=== PATIENT | female | born 1980 | race Caucasian/White ===

== ENCOUNTER 2018-02-14 14:34 | Emergency (ER) | payer MEDICAID ==
[~2018-02-14] VITALS: Ht 162.6 cm; Wt 85.0 kg
[~2018-02-14 14:34] MED LIST: CLOZ200T PO; DIVA-81 PO; DOCU250C4 PO; LEVO25TA2 PO; OMEP20TA23 PO; PERP8TAB6 PO; TOPI50TA24 PO
[2018-02-14 15:32] LABS: BASOPHILS % (AUTO) 0.2 % (0-1); EOSINOPHILS % (AUTO) 0.2 % (0-6); HEMATOCRIT 38.3 % (35.0-45.0); HEMOGLOBIN 13.4 g/dl (12.0-16.0); LYMPHOCYTES # (AUTO) 1.7 X10'3 (1.1-4.8); LYMPHOCYTES % (AUTO) 20.6 % (21-51); MEAN CORPUSCULAR HEMOGLOBIN 33.6 PG (27.0-31.0); MEAN CORPUSCULAR HGB CONC 35.1 % (33.0-36.5); MEAN CORPUSCULAR VOLUME 95.6 FL (78-98); MEAN PLATELET VOLUME 8.6 FL (7.4-10.4); MONOCYTES # (AUTO) 0.6 X10'3 (0-0.9); MONOCYTES % (AUTO) 7.8 % (2-12); NEUTROPHILS # (AUTO) 5.7 X10'3 (1.8-7.7); NEUTROPHILS % (AUTO) 71.2 % (42-75); PLATELET COUNT 208 X10'3 (140-440); RED BLOOD COUNT 4.01 X10'6 (4.20-5.60); RED CELL DISTRIBUTION WIDTH 12.7 % (11.5-14.5); WHITE BLOOD COUNT 8.1 X10'3 (4.5-11.0)
[2018-02-14 15:56] LABS: ACETAMINOPHEN < 2.0 UG/ML (10-30); ALANINE AMINOTRANSFERASE 18 U/L (12-78); ALBUMIN 3.9 G/DL (3.4-5.0); ALKALINE PHOSPHATASE 98 IU/L (46-116); ANION GAP 14 (8-16); ASPARTATE AMINO TRANSFERASE 14 U/L (10-37); BILIRUBIN,TOTAL 0.5 MG/DL (0.1-1.0); BLOOD UREA NITROGEN 14 MG/DL (7-18); BUN/CREATININE RATIO 21.5 (6.6-38.0); CALCIUM 9.1 MG/DL (8.5-10.1); CHLORIDE 102 MMOL/L (99-107); CREATININE 0.65 MG/DL (0.40-0.90); ETHANOL < 0.010 GM/DL (0.0-0.010); GLUCOSE 78 MG/DL (70-104); POTASSIUM 3.7 MMOL/L (3.5-5.1); SODIUM 140 MMOL/L (135-145); TOTAL CARBON DIOXIDE 23.7 MMOL/L (24-32); TOTAL PROTEIN 7.7 G/DL (6.4-8.2); eGFR > 90 ML/MIN
[2018-02-14 16:05] LABS: URINE AMPHETAMINE SCREEN NEGATIVE (Neg); URINE BARBITUATE SCREEN NEGATIVE (Neg); URINE BENZODIAZEPINES SCREEN NEGATIVE (Neg); URINE CANNABINOID SCREEN NEGATIVE (Neg); URINE COCAINE SCREEN NEGATIVE (Neg); URINE METHADONE SCREEN NEGATIVE (Neg); URINE OPIATE SCREEN NEGATIVE (Neg); URINE PHENCYCLIDINE SCREEN NEGATIVE (Neg)
[2018-02-14 17:50] LABS: CLARITY,URINE SLIGHTLY CLOUDY (Clear); COLOR,URINE STRAW (Yellow); GLUCOSE, URINE NEGATIVE (Neg); KETONES,URINE 15 mg/dl (Neg); LEUKOCYTE ESTERASE ,URINE NEGATIVE (Neg); NITRITES, URINE NEGATIVE (Neg); OCCULT BLOOD,URINE NEGATIVE (Neg); PH,URINE 5.5 (4.8-8.0); PROTEIN,URINE NEGATIVE (Neg); UROBILINOGEN,URINE 0.2 E.U/dL (0.2-1.0)
[2018-02-14 18:01] LABS: UA COLLECTION TYPE CLN CATCH MIDSTREAM
[2018-02-14 18:07] LABS: MUCUS STRANDS NONE SEEN /LPF (Neg); SQUAMOUS EPITHELIAL CELL,UR MODERATE /LPF (FEW)
[2018-02-14 18:08] LABS: BACTERIA,URINE FEW /HPF (Neg); RBC,URINE 0-2 /HPF (0-2); WBC,URINE NONE SEEN /HPF (0-4)
[2018-02-14] MEDS ORDERED: TOPI100T18 PO (19:22)
[2018-02-14] MEDS ORDERED: AMIT-189 PO (19:22)
[2018-02-14] MEDS ORDERED: DIVA500T9 PO (19:22)
[2018-02-14] MEDS ORDERED: LORazepam 2 mg/ml vial IM ONE (21:10)
[2018-02-14] MEDS ORDERED: diphenhydrAMINE 50 mg/ml inj IM ONE (21:10)
[2018-02-14] MEDS ORDERED: haloperidol lactate 5mg/ml inj IM ONE (21:10)
[2018-02-15 03:42] LABS: URINE HCG NEGATIVE (NEG)
[2018-02-15] MEDS ORDERED: OMEP20CA10 PO (09:46)
[2018-02-15] MEDS ORDERED: AMIT-189 PO (11:28)
[2018-02-15 12:54] VITALS: BP 130/81
[2018-02-15] MEDS ORDERED: docusate sod 250mg capsule PO SCH (20:00)
[2018-02-15] MEDS ORDERED: topiramate 100mg tablet PO SCH (20:00)
[2018-02-15] MEDS ORDERED: amitriptyline 25mg tablet PO SCH (21:00)
[2018-02-15] MEDS ORDERED: DIVALPROEX PO SCH (21:00)
[2018-02-15] MEDS ORDERED: divalproex sod 250mg ER (24-hour) tablet PO SCH (21:00)
[2018-02-16] MEDS ORDERED: pantoprazole 40mg Tablet.DR PO SCH (07:30)
[2018-02-16] MEDS ORDERED: non-formulary drug (Omeprazole 2 CAP) PO SCH (08:00)
[2018-02-16] MEDS ORDERED: levoTHYROXINE 25mcg tablet PO SCH (08:00)
== END 2018-02-15 12:58 ==
LOC: ER 14:36
DX: F23 Brief psychotic disorder (principal); R45.851 Suicidal ideations; Z88.0 Allergy status to penicillin; Z79.899 Other long term (current) drug therapy
CPT/HCPCS: 36415; 80053; 80305; 80320; 80329; 81001; 81025; 84443; 85025; 96372; 99285; J1200; J1630; J2060

== ENCOUNTER 2018-05-03 14:33 | Emergency (ER) | payer MEDICAID ==
[~2018-05-03] VITALS: Ht 565.3 cm; Wt 65.9 kg
[~2018-05-03 14:33] MED LIST changes: +AMIT-189 PO; -DIVA-81 PO; +DIVA500T9 PO; +OMEP20CA10 PO; -OMEP20TA23 PO; -PERP8TAB6 PO; +TOPI100T18 PO; -TOPI50TA24 PO
[2018-05-03 14:58] LABS: BASOPHILS % (AUTO) 0.4 % (0-1); EOSINOPHILS % (AUTO) 0.3 % (0-6); HEMATOCRIT 37.5 % (35.0-45.0); HEMOGLOBIN 13.1 g/dl (12.0-16.0); LYMPHOCYTES # (AUTO) 2.9 X10'3 (1.1-4.8); LYMPHOCYTES % (AUTO) 32.2 % (21-51); MEAN CORPUSCULAR HEMOGLOBIN 33.5 PG (27.0-31.0); MEAN CORPUSCULAR HGB CONC 34.9 % (33.0-36.5); MEAN CORPUSCULAR VOLUME 95.9 FL (78-98); MEAN PLATELET VOLUME 7.7 FL (7.4-10.4); MONOCYTES # (AUTO) 0.4 X10'3 (0-0.9); MONOCYTES % (AUTO) 4.9 % (2-12); NEUTROPHILS # (AUTO) 5.5 X10'3 (1.8-7.7); NEUTROPHILS % (AUTO) 62.2 % (42-75); PLATELET COUNT 286 X10'3 (140-440); RED BLOOD COUNT 3.91 X10'6 (4.20-5.60); RED CELL DISTRIBUTION WIDTH 12.8 % (11.5-14.5); WHITE BLOOD COUNT 8.9 X10'3 (4.5-11.0)
[2018-05-03 15:17] LABS: URINE HCG NEGATIVE (NEG)
[2018-05-03 15:19] LABS: ALANINE AMINOTRANSFERASE 26 U/L (12-78); ALBUMIN/GLOBULIN RATIO 1.1 (1.1-1.5); ALKALINE PHOSPHATASE 125 IU/L (46-116); ANION GAP 14 (8-16); ASPARTATE AMINO TRANSFERASE 11 U/L (10-37); BILIRUBIN,TOTAL 0.3 MG/DL (0.1-1.0); BLOOD UREA NITROGEN 7 MG/DL (7-18); CALCIUM 9.3 MG/DL (8.5-10.1); CHLORIDE 105 MMOL/L (99-107); CREATININE 0.78 MG/DL (0.40-0.90); GLUCOSE 88 MG/DL (70-104); POTASSIUM 3.5 MMOL/L (3.5-5.1); SODIUM 140 MMOL/L (135-145); TOTAL CARBON DIOXIDE 21.2 MMOL/L (24-32); TOTAL PROTEIN 7.7 G/DL (6.4-8.2); eGFR 82 ML/MIN
[2018-05-03 15:20] LABS: COLOR,URINE YELLOW (Yellow); GLUCOSE, URINE NEGATIVE (Neg); KETONES,URINE NEGATIVE (Neg); LEUKOCYTE ESTERASE ,URINE NEGATIVE (Neg); NITRITES, URINE NEGATIVE (Neg); OCCULT BLOOD,URINE LARGE (Neg); PH,URINE 6.5 (4.8-8.0); PROTEIN,URINE NEGATIVE (Neg); UROBILINOGEN,URINE 0.2 E.U/dL (0.2-1.0)
[2018-05-03 15:22] LABS: ETHANOL < 0.010 GM/DL (0.0-0.010)
[2018-05-03 15:29] LABS: UA COLLECTION TYPE CLN CATCH MIDSTREAM; URINE AMPHETAMINE SCREEN NEGATIVE (Neg); URINE BARBITUATE SCREEN NEGATIVE (Neg); URINE BENZODIAZEPINES SCREEN NEGATIVE (Neg); URINE CANNABINOID SCREEN NEGATIVE (Neg); URINE COCAINE SCREEN NEGATIVE (Neg); URINE METHADONE SCREEN NEGATIVE (Neg); URINE OPIATE SCREEN NEGATIVE (Neg); URINE PHENCYCLIDINE SCREEN NEGATIVE (Neg)
[2018-05-03 15:30] LABS: CLARITY,URINE SLIGHTLY CLOUDY (Clear)
[2018-05-03 15:31] LABS: BACTERIA,URINE 1+ /HPF (Neg); SQUAMOUS EPITHELIAL CELL,UR MODERATE /LPF (FEW); WBC,URINE 0-4 /HPF (0-4)
[2018-05-03] MEDS ORDERED: CLOZ100T31 PO (17:45)
[2018-05-03] MEDS: nicotine prolacrilex 2mg gum BC PRN (19:17)
[2018-05-03] MEDS ORDERED: haloperidol lactate 5mg/ml inj IM ONE (19:25)
[2018-05-03] MEDS ORDERED: LORazepam 2 mg/ml vial IM ONE (19:25)
[2018-05-03] MEDS ORDERED: acetaminophen 325mg tablet PO PRN (19:55)
[2018-05-03] MEDS: clozapine 100mg tablet PO SCH (21:20)
[2018-05-03] MEDS: topiramate 100mg tablet PO SCH (21:21)
[2018-05-04] MEDS: levoTHYROXINE 25mcg tablet PO SCH (08:03)
[2018-05-04] MEDS: pantoprazole 40mg Tablet.DR PO SCH (08:03)
[2018-05-04] MEDS: clozapine 100mg tablet PO SCH ×2 (08:10→20:24)
[2018-05-04] MEDS: topiramate 100mg tablet PO SCH ×2 (08:10→20:23)
[2018-05-04] MEDS: nicotine prolacrilex 2mg gum BC PRN ×4 (08:10→15:22)
[2018-05-04] MEDS ORDERED: dicyclomine 10 MG capsule PO PRN (12:45)
[2018-05-04] MEDS ORDERED: LORazepam 1 MG tablet PO ONE (14:15)
[2018-05-05 06:05] VITALS: BP 106/68
[2018-05-05] MEDS: nicotine prolacrilex 2mg gum BC PRN ×3 (07:13→13:09)
[2018-05-05] MEDS: pantoprazole 40mg Tablet.DR PO SCH (07:56)
[2018-05-05] MEDS: levoTHYROXINE 25mcg tablet PO SCH (07:56)
[2018-05-05] MEDS: topiramate 100mg tablet PO SCH (07:56)
[2018-05-05] MEDS: clozapine 100mg tablet PO SCH (07:56)
== END 2018-05-05 14:30 ==
LOC: ER 14:34
DX: F25.9 Schizoaffective disorder, unspecified (principal); F29 Unspecified psychosis not due to a substance or known physiological condition; Z88.0 Allergy status to penicillin; Z79.899 Other long term (current) drug therapy; Z56.0 Unemployment, unspecified
CPT/HCPCS: 36415; 80053; 80305; 80320; 81001; 81025; 84443; 85025; 99285

== ENCOUNTER 2019-12-12 11:21 | Emergency (ER) | payer MEDICAID ==
[~2019-12-12] VITALS: Ht 162.6 cm; Wt 68.0 kg
[~2019-12-12 11:21] MED LIST changes: +CLOZ100T31 PO; +DOCU-329 PO; -DOCU250C4 PO; -OMEP20CA10 PO; +OMEP20CA15 PO; +TOP100T PO; -TOPI100T18 PO
[2019-12-12 11:56] LABS: BASOPHILS % (AUTO) 0.4 % (0-1); EOSINOPHILS % (AUTO) 0 % (0-6); HEMATOCRIT 36.8 % (35.0-45.0); HEMOGLOBIN 12.6 g/dl (12.0-16.0); LYMPHOCYTES # (AUTO) 1.9 X10'3 (1.1-4.8); MEAN CORPUSCULAR HEMOGLOBIN 34.5 PG (27.0-31.0); MEAN CORPUSCULAR HGB CONC 34.3 g/dL (33.0-36.5); MEAN CORPUSCULAR VOLUME 100.5 FL (78-98); MEAN PLATELET VOLUME 7.6 FL (7.4-10.4); MONOCYTES # (AUTO) 0.5 X10'3 (0-0.9); MONOCYTES % (AUTO) 6.8 % (2-12); NEUTROPHILS % (AUTO) 66.8 % (42-75); PLATELET COUNT 274 X10'3 (140-440); RED BLOOD COUNT 3.66 X10'6 (4.20-5.60); RED CELL DISTRIBUTION WIDTH 12.5 % (11.5-14.5); WHITE BLOOD COUNT 7.4 X10'3 (4.5-11.0)
[2019-12-12 12:10] LABS: CLARITY,URINE CLEAR (Clear); COLOR,URINE STRAW (Yellow); GLUCOSE, URINE NEGATIVE (Neg); KETONES,URINE NEGATIVE (Neg); LEUKOCYTE ESTERASE ,URINE NEGATIVE (Neg); NITRITES, URINE NEGATIVE (Neg); OCCULT BLOOD,URINE TRACE-LYSED (Neg); PROTEIN,URINE NEGATIVE (Neg); UA COLLECTION TYPE CLN CATCH MIDSTREAM; UROBILINOGEN,URINE 0.2 E.U/dL (0.2-1.0)
[2019-12-12 12:16] LABS: SQUAMOUS EPITHELIAL CELL,UR FEW /LPF (FEW)
[2019-12-12 12:17] LABS: ALANINE AMINOTRANSFERASE 29 U/L (12-78); ALBUMIN 3.7 G/DL (3.4-5.0); ALBUMIN/GLOBULIN RATIO 1.1 (1.1-1.5); ALKALINE PHOSPHATASE 107 IU/L (46-116); ANION GAP 6 (8-16); ASPARTATE AMINO TRANSFERASE 20 U/L (10-37); BILIRUBIN,TOTAL 0.3 MG/DL (0.1-1.0); BLOOD UREA NITROGEN 7 MG/DL (7-18); BUN/CREATININE RATIO 10.3 (6.6-38.0); CALCIUM 8.9 MG/DL (8.5-10.1); CHLORIDE 108 MMOL/L (99-107); CREATININE 0.68 MG/DL (0.40-0.90); GLUCOSE 84 MG/DL (70-104); POTASSIUM 3.2 MMOL/L (3.5-5.1); SODIUM 140 MMOL/L (135-145); TOTAL CARBON DIOXIDE 26.4 MMOL/L (24-32); eGFR > 90 ML/MIN
[2019-12-12 12:17] LABS: BACTERIA,URINE FEW /HPF (Neg); RBC,URINE 0-2 /HPF (0-2); STARCH,URINE MODERATE /HPF (NEGATIVE); WBC,URINE 0-4 /HPF (0-4)
[2019-12-12] MEDS ORDERED: NICOTINE POLACRILEX 4 MG LOZENGE BC PRN (12:25)
[2019-12-12 12:26] LABS: ACETAMINOPHEN < 2.0 UG/ML (10-30); ETHANOL < 0.010 GM/DL (0.0-0.010)
[2019-12-12] MEDS ORDERED: potassium Cl 20 mEq SR tablet PO STA (12:32)
[2019-12-12] MEDS ORDERED: NICOTINE POLACRILEX 2 MG LOZENGE BC PRN ×3 (12:40→13:10)
[2019-12-12 12:42] LABS: URINE AMPHETAMINE SCREEN NEGATIVE (Neg); URINE BARBITUATE SCREEN NEGATIVE (Neg); URINE BENZODIAZEPINES SCREEN NEGATIVE (Neg); URINE CANNABINOID SCREEN NEGATIVE (Neg); URINE COCAINE SCREEN NEGATIVE (Neg); URINE METHADONE SCREEN NEGATIVE (Neg); URINE OPIATE SCREEN NEGATIVE (Neg); URINE PHENCYCLIDINE SCREEN NEGATIVE (Neg)
[2019-12-12] MEDS ORDERED: LORazepam 1 MG tablet PO ONE (12:55)
--- NOTE | 2019-12-12 12:55 | NUR ---
Notified Dr. Ramires regarding patient verbalizing that she is , "aggitated". Patient stated, "Nurse, I'm aggitated." As well as pacing from ER bed [address] Silvestre gave verbal order for ativan 2 mg PO once now. Will place order and administer medication as prescribed by Dr. Silvestre.
[2019-12-12] MEDS ORDERED: OMEP10CA5 PO (13:16)
[2019-12-12] MEDS ORDERED: PROP10TA10 PO (13:16)
[2019-12-12] MEDS ORDERED: TOP100T PO ×2 (13:16→13:22)
[2019-12-12] MEDS ORDERED: LITH450T2 PO (13:22)
--- NOTE | 2019-12-12 13:42 | NUR ---
Medications stored in pharmacy
--- NOTE | 2019-12-12 14:17 | NUR ---
Patient pacing in front of nurses station. Patient appears agitated and responding to internal stimuli. RN to ask for anti-psychotic for patient. Continue to monitor. Patient has a sitter due to psychosis and wandering.
--- NOTE | 2019-12-12 15:07 | NUR ---
packet faxed to [facility].
--- NOTE | 2019-12-12 16:19 | NUR ---
Patient sleeping supine. No distress observed. Patient has a sitter at bedside. Continue to monitor.
[2019-12-12 18:02] LABS: URINE HCG NEGATIVE (NEG)
[2019-12-12] MEDS ORDERED: propranolol 10mg tablet PO SCH (20:00)
[2019-12-12] MEDS ORDERED: docusate sod 250mg capsule PO SCH (20:00)
--- NOTE | 2019-12-12 20:56 | NUR ---
[facility] HERE TO TAKE PT TO [facility] [place]. PT GIVEN EVENING MEDS RIOR TO LEAVING. SHE HAD REQUESTED ATIVAN. PT RECEIVED ATIVAN 2 MG PO 7 HRS AGO AND APPEARS VERY SLEEPY STILL. I TOLD HER TO REQUEST THIS ONCE SHE ARRIVES AT [facility]. PT UP WITH STEADY GAIT TO BR TO CHANGE INTO CLOTHERS FOR DISCHARGE.
[2019-12-12 20:58] VITALS: BP 115/68
[2019-12-12] MEDS ORDERED: topiramate 100mg tablet PO SCH (21:00)
[2019-12-12] MEDS ORDERED: lithium carbonate 450mg CR tablet PO SCH (21:00)
--- NOTE | 2019-12-12 22:29 | NUR ---
[facility] RECEIVED PT AND CALLED TO REVIEW WHAT NIGHT TIME MEDS PT WAS GIVEN.
[2019-12-13] MEDS ORDERED: pantoprazole 40mg Tablet.DR PO SCH (07:30)
[2019-12-13] MEDS ORDERED: topiramate 100mg tablet PO SCH (08:00)
[2019-12-13] MEDS ORDERED: levoTHYROXINE 25mcg tablet PO SCH (08:00)
== END 2019-12-12 21:08 ==
LOC: ER 11:21
DX: R44.0 Auditory hallucinations (principal); F79 Unspecified intellectual disabilities; F17.200 Nicotine dependence, unspecified, uncomplicated; Z56.0 Unemployment, unspecified; Z88.0 Allergy status to penicillin; Z79.899 Other long term (current) drug therapy
CPT/HCPCS: 36415; 80053; 80178; 80305; 80320; 80329; 81001; 81025; 84443; 85025; 99285

== ENCOUNTER 2020-01-04 00:50 | Emergency (ER) | payer MEDICAID ==
[~2020-01-04] VITALS: Ht 160 cm; Wt 68.2 kg
[~2020-01-04 00:50] MED LIST changes: -AMIT-189 PO; -CLOZ100T31 PO; -CLOZ200T PO; -DIVA500T9 PO; +LITH450T2 PO; +OMEP10CA5 PO; -OMEP20CA15 PO; +PROP10TA10 PO
[2020-01-04 00:55] VITALS: BP 105/65
--- NOTE | 2020-01-04 01:22 | NUR ---
PT WALKED OUT OF HER ROOM AND IS STANDING OUTSIDE ANOTHER PTS ROOM. WHEN ASKED WHAT WE CAN HELP HER WITH SHE STATES "I'M WAITING TO SEE THE DR, DO YOU THINK I CAN GET SOME NICORETE GUM?" PT ASKED TO RETURN TO HER ROOM AND WAIT THERE FOR THE MD.
--- NOTE | 2020-01-04 01:38 | NUR ---
PT OUT OF HER ROOM AGAIN, INSTRUCTED TO GO BACK TO HER ROOM
--- NOTE | 2020-01-04 02:20 | NUR ---
PT STATES THAT SHE THINKS THERE IS SOMETHING WRONG WITH HER EYES. NO OBSERVABLE REDNESS OR PROBLEM. SHE DENIES S\I OR H\I
== END 2020-01-04 02:37 | disposition home or self-care (01) ==
LOC: ER 00:51
DX: H53.8 Other visual disturbances (principal); M54.5 Low back pain; F20.9 Schizophrenia, unspecified; Z56.0 Unemployment, unspecified; Z88.0 Allergy status to penicillin; Z79.899 Other long term (current) drug therapy
CPT/HCPCS: 99281

== ENCOUNTER 2020-01-08 11:13 | Emergency (ER) | payer MEDICAID ==
[~2020-01-08] VITALS: Ht 162.6 cm; Wt 73.2 kg
--- NOTE | 2020-01-08 11:38 | NUR ---
CALLED [facility] [phone] REQUESTED MEDICATION LIST
[2020-01-08 11:55] LABS: BASOPHILS % (AUTO) 0.5 % (0-1); EOSINOPHILS % (AUTO) 0 % (0-6); HEMOGLOBIN 11.8 g/dl (12.0-16.0); LYMPHOCYTES # (AUTO) 1.5 X10'3 (1.1-4.8); MEAN CORPUSCULAR HEMOGLOBIN 34.1 PG (27.0-31.0); MEAN CORPUSCULAR HGB CONC 33.7 g/dL (33.0-36.5); MEAN CORPUSCULAR VOLUME 101.3 FL (78-98); MEAN PLATELET VOLUME 7.7 FL (7.4-10.4); MONOCYTES # (AUTO) 0.5 X10'3 (0-0.9); NEUTROPHILS # (AUTO) 6.5 X10'3 (1.8-7.7); NEUTROPHILS % (AUTO) 75.5 % (42-75); PLATELET COUNT 321 X10'3 (140-440); RED BLOOD COUNT 3.46 X10'6 (4.20-5.60); RED CELL DISTRIBUTION WIDTH 12.6 % (11.5-14.5); WHITE BLOOD COUNT 8.6 X10'3 (4.5-11.0)
[2020-01-08 12:13] LABS: ALANINE AMINOTRANSFERASE 21 U/L (12-78); ALBUMIN 3.6 G/DL (3.4-5.0); ALBUMIN/GLOBULIN RATIO 1.1 (1.1-1.5); ALKALINE PHOSPHATASE 99 IU/L (46-116); ANION GAP 5 (8-16); ASPARTATE AMINO TRANSFERASE 16 U/L (10-37); BILIRUBIN,TOTAL 0.3 MG/DL (0.1-1.0); BLOOD UREA NITROGEN 15 MG/DL (7-18); BUN/CREATININE RATIO 21.4 (6.6-38.0); CALCIUM 8.7 MG/DL (8.5-10.1); CHLORIDE 106 MMOL/L (99-107); GLUCOSE 126 MG/DL (70-104); POTASSIUM 3.9 MMOL/L (3.5-5.1); SODIUM 140 MMOL/L (135-145); TOTAL CARBON DIOXIDE 29.3 MMOL/L (24-32); TOTAL PROTEIN 6.8 G/DL (6.4-8.2); eGFR > 90 ML/MIN
[2020-01-08 12:21] LABS: ETHANOL < 0.010 GM/DL (0.0-0.010)
[2020-01-08 12:22] LABS: ACETAMINOPHEN < 2.0 UG/ML (10-30)
[2020-01-08 12:23] LABS: VALPROATE < 3.0 UG/ML (50-100)
--- NOTE | 2020-01-08 13:09 | NUR ---
PT IS LYING DOWN ON HER RIGHT SIDE WITH EYES CLOSED, RESPIRATIONS SPONTENOUS, EVEN AND UNLABORED, NO S/S OF DISTRESS, DISCOMFORT OR AGITATION, PT IN LINE OF SITE OF NURSES STATION.
--- NOTE | 2020-01-08 13:26 | NUR ---
PT UP WONDERING STATING SHE WANTS TO GO TO [facility].
--- NOTE | 2020-01-08 13:46 | NUR ---
PT WAS FOUND IN BATHROOM CLEANING HER TOES WITH TOOTHPASTE AND TOOTH BRUSH.
[2020-01-08] MEDS ORDERED: LORazepam 2 mg/ml vial IM ONE (14:20)
--- NOTE | 2020-01-08 14:21 | NUR ---
PT CONTINOUS PACING AROUND UNIT WANTING TO GO TO [facility]. EDUCATED ON SELF CALMING ACTIONS. GAVE PT BOOK. ALL MEASURES INEFFECTIVE. PT UNABLE TO CALM SELF. OBTAINED ONE TIME ORDER FOR ATIVAN IM 1 MG. ADMINISTERED ORDERED. WILL CONTINUE TO MONITOR.
[2020-01-08 14:30] LABS: CLARITY,URINE CLEAR (Clear); COLOR,URINE YELLOW (Yellow); GLUCOSE, URINE NEGATIVE (Neg); KETONES,URINE NEGATIVE (Neg); LEUKOCYTE ESTERASE ,URINE TRACE (Neg); NITRITES, URINE NEGATIVE (Neg); OCCULT BLOOD,URINE NEGATIVE (Neg); PH,URINE 6.5 (4.8-8.0); PROTEIN,URINE NEGATIVE (Neg); UA COLLECTION TYPE CLN CATCH MIDSTREAM; UROBILINOGEN,URINE 0.2 E.U/dL (0.2-1.0)
[2020-01-08 14:32] LABS: URINE HCG NEGATIVE (NEG)
[2020-01-08 14:36] LABS: SQUAMOUS EPITHELIAL CELL,UR FEW /LPF (FEW)
[2020-01-08 14:37] LABS: BACTERIA,URINE FEW /HPF (Neg); RBC,URINE 0-2 /HPF (0-2); WBC,URINE 0-4 /HPF (0-4)
[2020-01-08 14:44] LABS: URINE AMPHETAMINE SCREEN NEGATIVE (Neg); URINE BARBITUATE SCREEN NEGATIVE (Neg); URINE BENZODIAZEPINES SCREEN NEGATIVE (Neg); URINE CANNABINOID SCREEN NEGATIVE (Neg); URINE COCAINE SCREEN NEGATIVE (Neg); URINE METHADONE SCREEN NEGATIVE (Neg); URINE OPIATE SCREEN NEGATIVE (Neg); URINE PHENCYCLIDINE SCREEN NEGATIVE (Neg)
--- NOTE | 2020-01-08 15:33 | NUR ---
PT SITTING AT SIDE OF BED. NO S/SX OF DISTRESS.
--- NOTE | 2020-01-08 15:34 | NUR ---
PT REQUESTING NICOTINE LOUNGES.
--- NOTE | 2020-01-08 15:36 | NUR ---
SENT PACKET TO [facility]
[2020-01-08] MEDS ORDERED: CARI6CAP PO (16:19)
[2020-01-08] MEDS ORDERED: TEMA30CA5 PO (16:19)
[2020-01-08] MEDS ORDERED: LITH150C8 PO (16:19)
[2020-01-08] MEDS ORDERED: CLOZ100T21 PO (16:19)
[2020-01-08] MEDS ORDERED: NICOTINE POLACRILEX 2 MG LOZENGE BC PRN (16:25)
[2020-01-08] MEDS ORDERED: temazepam 15mg capsule PO PRN (16:40)
--- NOTE | 2020-01-08 17:39 | NUR ---
Mckay from [facility] called for nurse to nurse assessment.
[2020-01-08 17:56] VITALS: BP 121/61
--- NOTE | 2020-01-08 17:59 | NUR ---
Lindy from [facility] called [facility] accepted the pt and they will be here in 15 minutes to transfer pt,.
[2020-01-08] MEDS ORDERED: docusate sod 250mg capsule PO SCH (20:00)
[2020-01-08] MEDS ORDERED: propranolol 10mg tablet PO SCH (20:00)
[2020-01-08] MEDS ORDERED: CARIPRAZINE 1.5 MG CAPSULE PO SCH (21:00)
[2020-01-08] MEDS ORDERED: topiramate 100mg tablet PO SCH (21:00)
[2020-01-08] MEDS ORDERED: lithium carbonate 150mg capsule PO SCH (21:00)
[2020-01-08] MEDS ORDERED: CLOZAPINE 100 MG TAB.RAPDIS PO SCH (21:00)
[2020-01-09] MEDS ORDERED: levoTHYROXINE 25mcg tablet PO SCH (16:38)
[2020-01-09] MEDS ORDERED: topiramate 100mg tablet PO SCH (16:39)
[2020-01-09] MEDS ORDERED: pantoprazole 40mg Tablet.DR PO SCH (16:42)
== END 2020-01-08 18:38 ==
LOC: ER 11:14
DX: F29 Unspecified psychosis not due to a substance or known physiological condition (principal); F31.9 Bipolar disorder, unspecified; Z56.0 Unemployment, unspecified; Z88.0 Allergy status to penicillin; Z79.899 Other long term (current) drug therapy
CPT/HCPCS: 36415; 71045; 80053; 80164; 80178; 80305; 80320; 80329; 81001; 81025; 84443; 85025; 93005; 96372; 99285; J2060

== ENCOUNTER 2022-11-30 13:11 | Emergency (ER) | payer MEDICAID ==
[~2022-11-30] VITALS: Ht 162.6 cm; Wt 79.5 kg
[~2022-11-30 13:11] MED LIST changes: +CARI6CAP PO; +CLOZ100T21 PO; -DOCU-329 PO; +DOCU250C96 PO; +LITH150C8 PO; -LITH450T2 PO; +TEMA30CA5 PO
[2022-11-30] MEDS ORDERED: HYDROcodone/acetaminophen 5mg/325mg tablet PO ONE (14:05)
[2022-11-30] MEDS ORDERED: HYDR-3965 PO (15:33)
[2022-11-30 16:02] VITALS: BP 134/99
== END 2022-11-30 16:02 | disposition home or self-care (01) ==
LOC: ER 13:12
DX: S00.83XA Contusion of other part of head, initial encounter (principal); M25.531 Pain in right wrist; M25.521 Pain in right elbow; F20.9 Schizophrenia, unspecified; F31.9 Bipolar disorder, unspecified; M54.2 Cervicalgia; Z56.0 Unemployment, unspecified; Z88.0 Allergy status to penicillin; Z79.899 Other long term (current) drug therapy; W19.XXXA Unspecified fall, initial encounter; Y93.89 Activity, other specified; Y92.89 Other specified places as the place of occurrence of the external cause; Y99.8 Other external cause status
CPT/HCPCS: 29125; 70450; 72125; 73090; 73130; 99284; L3908; A4565

== ENCOUNTER 2023-10-18 13:26 | Outpatient (CLI) | payer MEDICAID ==
[~2023-10-18 13:26] MED LIST changes: +DOCU-395 PO; -DOCU250C96 PO
== END 2023-10-18 23:59 | disposition home or self-care (01) ==
LOC: RAD 13:26
PROVIDERS: ATTEND Nurse Practitioner Psychiatric/Mental Health
DX: I51.7 Cardiomegaly (principal); Z79.899 Other long term (current) drug therapy
CPT/HCPCS: 93005

== ENCOUNTER 2024-08-10 11:53 | Emergency (ER) | payer MEDICAID ==
[~2024-08-10] VITALS: Ht 162.6 cm; Wt 87.3 kg
[2024-08-10] MEDS: HYDROcodone/acetaminophen 5mg/325mg tablet PO ONE (13:35)
[2024-08-10] MEDS: ketorolac trometh 30MG/ML vial 30 MG/ML VIAL IM ONE (13:36)
[2024-08-10] MEDS ORDERED: HYDR-3965 PO (14:31)
[2024-08-10 15:03] VITALS: BP 138/90; PULSE 74; RESP 16; TEMP 98.2; O2SAT 96
== END 2024-08-10 15:21 | disposition home or self-care (01) ==
LOC: ER 11:54
DX: S66.911A Strain of unspecified muscle, fascia and tendon at wrist and hand level, right hand, initial encounter (principal); Z88.0 Allergy status to penicillin; W01.0XXA Fall on same level from slipping, tripping and stumbling without subsequent striking against object, initial encounter; Y93.01 Activity, walking, marching and hiking; Y92.89 Other specified places as the place of occurrence of the external cause; Y99.8 Other external cause status
CPT/HCPCS: 29125; 73110; 96372; 99284; J1885

== ENCOUNTER 2025-01-22 09:15 | Outpatient (CLI) | payer MEDICAID | END 2025-01-22 23:59 | disposition home or self-care (01) | LOC: RAD 09:15 | PROVIDERS: ATTEND Nurse Practitioner Psychiatric/Mental Health | DX: F25.1 Schizoaffective disorder, depressive type (principal); Z79.899 Other long term (current) drug therapy | CPT/HCPCS: 93005 ==